=== PATIENT | female | born 1970 | race Caucasian/White ===

== ENCOUNTER 2019-12-06 20:34 | Observation (INO) | payer SELFPAY ==
[~2019-12-06] VITALS: Ht 175 cm; Wt 155.0 kg
--- NOTE | 2019-12-06 20:53 | NUR ---
Covid-19 swab obtained.
[2019-12-06 20:54] LABS: BASOPHILS % (AUTO) 0 % (0-10); EOSINOPHILS # (AUTO) 0.2 10^3/uL (0.0-0.3); EOSINOPHILS % (AUTO) 3 % (0-10); HEMATOCRIT 46 % (35-52); HEMOGLOBIN 15.9 G/DL (11.5-16.0); LYMPHOCYTES # (AUTO) 2.8 X 10^3 (1.0-4.0); LYMPHOCYTES % (AUTO) 41 % (12-44); MEAN CORPUSCULAR HEMOGLOBIN 29 PG (25-34); MEAN CORPUSCULAR HGB CONC 35 G/DL (32-36); MEAN CORPUSCULAR VOLUME 82 FL (80-99); MEAN PLATELET VOLUME 9.3 FL (7.4-10.4); MONOCYTES # (AUTO) 0.7 X 10^3 (0.0-1.0); MONOCYTES % (AUTO) 9 % (0-12); NEUTROPHILS # (AUTO) 3.2 X 10^3 (1.8-7.8); NEUTROPHILS % (AUTO) 46 % (42-75); PLATELET COUNT 173 10^3/uL (130-400); RED CELL DISTRIBUTION WIDTH 12.9 % (10.0-14.5); WHITE BLOOD COUNT 6.9 10^3/uL (4.3-11.0)
[2019-12-06] MEDS ORDERED: NITROGLYCERIN 0.4 MG SL TABS BTL 25'S SL PRN ×2 (21:00→23:00)
[2019-12-06] MEDS ORDERED: ASPIRIN 81 MG CHEW (CHILDREN'S ASA) PO ONE (21:00)
--- NOTE | 2019-12-06 21:03 | ED Chest Pain ---
General Chief Complaint: Chest Pain Stated Complaint: CP,SOB Source: patient History of Present Illness Date Seen by Provider: Dec 06, 2019 Time Seen by Provider: 20:38 Initial Comments PT ARRIVES VIA POV FROM HOME C/O CHEST PAIN FOR 4 DAYS, STATES IT WAS "JUST A LITTLE BIT" INITIALLY AND INITIALLY WOULD COME AND GO ,BUT HAS BEEN WORSE AND CONSTANT THE LAST 2 DAYS PAIN IS IN LEFT UPPER CHEST AND RADIATES TO LEFT SHOULDER PAIN IS WORSE WITH ACTIVITY/EXERTION AND IS ALSO WORSE WHEN SHE IS FEELING "STRESSED"--STATES SHE HAS BEEN UNDER ALOT OF STRESS LATELY C/O SHORTNESS OF BREATH C/O NAUSEA, NO VOMITING 4 DAYS AGO "HAD REALLY BAD ABDOMINAL PAIN" ALL OVER ABDOMEN LAST WEEK SHE HAD DIARRHEA FOR A DAY OR TWO HAS CONTINUED TO EAT AND DRINK USUAL NO URINARY SYMPTOMS NO FEVER/SWEATS/CHILLS NO DIZZINESS NO PALPITATIONS NO COUGH NO SORE THROAT NO LOSS OF TASTE OR SMELL NO SWELLING IN LEGS/FEET OR PAIN IN CALVES NO KNOWN SICK CONTACTS OR KNOWN EXPOSURE TO COVID-19 HAS NOT TAKEN ANYTHING FOR SYMPTOMS SYMPTOMS NO DIFFERENT TONIGHT HAS NOT SOUGHT CARE UNTIL TONIGHT NO HISTORY OF SIMILAR PCP: NONE Allergies and Home Medications Allergies Coded Allergies: No Known Drug Allergies (Unverified , 12/06/19) Patient Home Medication List Home Medication List Reviewed: Yes Review of Systems Review of Systems Constitutional: no symptoms reported; No chills, No diaphoresis, No dizziness, No fever, No malaise, No weakness EENTM: No Symptoms Reported Respiratory: See HPI; Denies Cough; Shortness of Air Cardiovascular: See HPI, Chest Pain; Denies Edema, Denies Lightheadedness, Denies Palpitations, Denies Syncope Gastrointestinal: See HPI, Abdominal Pain, Diarrhea, Nausea; Denies Poor Appetite, Denies Poor Fluid Intake, Denies Vomiting Genitourinary: No Symptoms Reported Musculoskeletal: no symptoms reported; No back pain Skin: no symptoms reported Psychiatric/Neurological: No Symptoms Reported; Denies Headache Endocrine: No Symptoms Reported Hematologic/Lymphatic: No Symptoms Reported Past Chqlxck-Valpye-Jqybpz Hx Past Med/Social Hx: Reviewed and Corrections made Patient Social History Alcohol Use: Denies Use Recreational Drug Use: No Smoking Status: Never a Smoker Recent Foreign Travel: No Contact w/Someone Who Travel: No Past Medical History Surgeries: Yes (HYST/BSO 1996; SPARKLE 2007; EGD/COLONOSCOPY/POLYPECTOMY) Gallbladder, Hysterectomy, Oophorectomy Respiratory: No Cardiac: No Neurological: No Reproductive Disorders: Yes (HYST/BSO) 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 oz. kg; BMI Method: General Appearance: No Apparent Distress, Obese, Other (VERY PLEASANT) HEENT: PERRL/EOMI Neck: Full Range of Motion, Normal Inspection, Non Tender, Supple; No Carotid Bruit, No JVD Respiratory: Chest Non Tender, Normal Breath Sounds, No Accessory Muscle Use, No Respiratory Distress Cardiovascular: Regular Rate, Rhythm, No Edema, No JVD, No Murmur, Normal Peripheral Pulses Gastrointestinal: Normal Bowel Sounds, No Organomegaly, No Pulsatile Mass, Non Tender, Soft Extremity: Normal Capillary Refill, Normal Inspection, Normal Range of Motion, Non Tender, No Calf Tenderness, No Pedal Edema Neurologic/Psychiatric: Alert, Oriented x3, No Motor/Sensory Deficits, Normal 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, 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 Skin: Normal Color, Warm/Dry Progress/Results/Core Measures Results/Orders Lab Results Laboratory Tests Test 12/06/19 20:47 12/06/19 20:53 Range/Units White Blood Count 6.9 4.3-11.0 10^3/uL Red Blood Count 5.55 4.35-5.85 10^6/uL Hemoglobin 15.9 11.5-16.0 G/DL Hematocrit 46 35-52 % Mean Corpuscular Volume 82 80-99 FL Mean Corpuscular Hemoglobin 29 25-34 PG Mean Corpuscular Hemoglobin Concent 35 32-36 G/DL Red Cell Distribution Width 12.9 10.0-14.5 % Platelet Count 173 130-400 10^3/uL Mean Platelet Volume 9.3 7.4-10.4 FL Neutrophils (%) (Auto) 46 42-75 % Lymphocytes (%) (Auto) 41 12-44 % Monocytes (%) (Auto) 9 0-12 % Eosinophils (%) (Auto) 3 0-10 % Basophils (%) (Auto) 0 0-10 % Neutrophils # (Auto) 3.2 1.8-7.8 X 10^3 Lymphocytes # (Auto) 2.8 1.0-4.0 X 10^3 Monocytes # (Auto) 0.7 0.0-1.0 X 10^3 Eosinophils # (Auto) 0.2 0.0-0.3 10^3/uL Basophils # (Auto) 0.0 0.0-0.1 10^3/uL Erythrocyte Sedimentation Rate 5 0-30 MM/HR Prothrombin Time 12.6 12.2-14.7 SEC INR Comment 0.9 0.8-1.4 Activated Partial Thromboplast Time 30 24-35 SEC D-Dimer 0.32 0.00-0.49 UG/ML Sodium Level 141 135-145 MMOL/L Potassium Level 3.8 3.6-5.0 MMOL/L Chloride Level 107 98-107 MMOL/L Carbon Dioxide Level 25 21-32 MMOL/L Anion Gap 9 5-14 MMOL/L Blood Urea Nitrogen 13 7-18 MG/DL Creatinine 0.98 0.60-1.30 MG/DL Estimat Glomerular Filtration Rate 60 BUN/Creatinine Ratio 13 Glucose Level 110 H 70-105 MG/DL Calcium Level 9.3 8.5-10.1 MG/DL Corrected Calcium 9.1 8.5-10.1 MG/DL Magnesium Level 1.9 1.6-2.4 MG/DL Total Bilirubin 0.8 0.1-1.0 MG/DL Aspartate Amino Transf (AST/SGOT) 21 5-34 U/L Alanine Aminotransferase (ALT/SGPT) 18 0-55 U/L Alkaline Phosphatase 86 40-136 U/L Lactate Dehydrogenase 255 H 125-220 U/L Total Creatine Kinase 105 29-168 U/L Creatine Kinase MB 1.1 <6.6 NG/ML Myoglobin 41.7 10.0-92.0 NG/ML Troponin I < 0.028 <0.028 NG/ML C-Reactive Protein High Sensitivity 0.46 0.00-0.50 MG/DL B-Type Natriuretic Peptide < 10.0 <100.0 PG/ML Total Protein 7.2 6.4-8.2 GM/DL Albumin 4.2 3.2-4.5 GM/DL Amylase Level 49 25-125 U/L Lipase 22 8-78 U/L Procalcitonin 0.02 <0.10 NG/ML My Orders Orders - DERRICKTAYLAA Nora DO Cbc With Automated Diff (12/06/19 20:37) Magnesium (12/06/19 20:37) Chest 1 View, Ap/Pa Only (12/06/19 20:37) Ekg Tracing (12/06/19 20:37) Comprehensive Metabolic Panel (12/06/19 20:37) Myoglobin Serum (12/06/19 20:37) Protime With Inr (12/06/19 20:37) Partial Thromboplastin Time (12/06/19 20:37) O2 (12/06/19 20:37) Monitor-Rhythm Ecg Trace Only (12/06/19 20:37) Ed Iv/Invasive Line Start (12/06/19 20:37) Creatine Kinase (12/06/19 20:37) Creatine Kinase Mb (12/06/19 20:37) Lipase (12/06/19 20:37) Amylase (12/06/19 20:37) BNP (12/06/19 20:37) Erythrocyte Sedimentation Rate (12/06/19 20:37) Coronavirus Sars-Cov-2 So 2018 (12/06/19 20:37) Nitroglycerin 0.4 Mg Btl 25's (Nitrostat (12/06/19 21:00) Aspirin Chewable Tablet (Baby Aspirin Ch (12/06/19 21:00) Hs C Reactive Protein (12/06/19 20:47) LDH (12/06/19 20:47) Procalcitonin (Pct) (12/06/19 20:47) Troponin I (12/06/19 20:47) Fibrin Degradation Products (12/06/19 20:47) Enoxaparin Injection (Lovenox Injection) (12/06/19 22:00) Enoxaparin Injection (Lovenox Injection) (12/06/19 22:00) Metoprolol Succinate (Xl) Tab (Toprol Xl (12/06/19 22:00) Medications Given in ED Current Medications Medications Dose Ordered Sig/Darryl Route Start Time Stop Time Status Last Admin Dose Admin Aspirin 324 mg ONCE ONCE PO 12/06/19 21:00 12/06/19 21:04 DC 12/06/19 21:01 324 MG Enoxaparin Sodium 50 mg ONCE ONCE SC 12/06/19 22:00 12/06/19 22:01 DC 12/06/19 22:01 50 MG Enoxaparin Sodium 100 mg ONCE ONCE SC 12/06/19 22:00 12/06/19 22:01 DC 12/06/19 22:00 100 MG Nitroglycerin 0.4 mg UD PRN SL 12/06/19 21:00 12/06/19 21:01 0.4 MG Vital Signs/I&O 12/06/19 12/06/19 12/06/19 12/06/19 20:40 20:40 21:07 21:43 Temp 35.6 Pulse 80 90 66 Resp 18 20 16 B/P (MAP) 150/116 (127) 135/75 (95) 142/82 (102) Pulse Ox 98 96 99 O2 Delivery Room Air Room Air Room Air Room Air Progress Progress Note : Progress Note PT PLACED IN ISOLATION ROOM, PPE WORN AT ALL TIMES, PER CURRENT HOSPITAL GUIDELINES COVID TESTING PERFORMED PT GIVEN ASPIRIN AND NTG X 1 WITH COMPLETE RELIEF OF PAIN AND BP DOWN UNEVENTFUL ER STAY Initial ECG Impression Date: Dec 06, 2019 Initial ECG Impression Time: 20:42 Initial ECG Rate: 81 Initial ECG Rhythm: Normal Sinus Diagnostic Imaging Comments CXR--NO ACUTE PROCESS, PER RADIOLOGIST REPORT AT 0 Reviewed: Reviewed by Me Departure Communication (Admissions) 2149--SPOKE WITH DR. PARIS, HOSPITALIST, ACCEPTS PT FOR ADMIT Impression Primary Impression: Chest pain Additional Impressions: HTN (hypertension) COVID P.U.I. Morbid obesity Disposition: 09 ADMITTED INPATIENT Condition: Improved Admissions Decision to Admit Reason: Admit from ER (General) Decision to Admit/Date: Dec 06, 2019 Time/Decision to Admit Time: 21:50 Departure-Patient Inst. Referrals: NO,LOCAL PHYSICIAN (PCP/Family) Primary Care Physician JAY MEZA DO Dec 06, 2019 21:03
[2019-12-06 21:07] VITALS: BP 135/75
--- NOTE | 2019-12-06 21:07 | NUR ---
Chest pain is now down to a 0 out of 10 after 1st nitro given.
[2019-12-06 21:17] LABS: FIBRIN DEGRADATION PRODUCTS 0.32 UG/ML (0.00-0.49); INR 0.9 (0.8-1.4); PROTHROMBIN TIME PATIENT 12.6 SEC (12.2-14.7)
[2019-12-06 21:20] LABS: ALANINE AMINOTRANSFERASE 18 U/L (0-55); ALBUMIN 4.2 GM/DL (3.2-4.5); ALKALINE PHOSPHATASE 86 U/L (40-136); AMYLASE 49 U/L (25-125); BILIRUBIN,TOTAL 0.8 MG/DL (0.1-1.0); BUN/CREATININE RATIO 13; CALCIUM 9.3 MG/DL (8.5-10.1); CARBON DIOXIDE 25 MMOL/L (21-32); CHLORIDE 107 MMOL/L (98-107); CREATINE KINASE 105 U/L (29-168); CREATININE SERUM 0.98 MG/DL (0.60-1.30); GFR ESTIMATED 60; GLUCOSE 110 MG/DL (70-105); LIPASE 22 U/L (8-78); MAGNESIUM 1.9 MG/DL (1.6-2.4); POTASSIUM 3.8 MMOL/L (3.6-5.0); SODIUM 141 MMOL/L (135-145); TOTAL PROTEIN 7.2 GM/DL (6.4-8.2)
[2019-12-06 21:41] LABS: CREATINE KINASE MB 1.1 NG/ML (<6.6)
[2019-12-06 21:43] VITALS: BP 142/82
--- NOTE | 2019-12-06 21:49 | Diagnostic Imaging Report ---
INDICATION: Chest heaviness. COMPARISON: No prior examination is available for comparison. EXAMINATION: Single view of the chest was obtained. FINDINGS: The heart size, mediastinal configuration, and pulmonary vascularity are within normal limits. There is no pleural effusion, pneumothorax, or pneumonia. The osseous structures are unremarkable. IMPRESSION: No acute cardiopulmonary abnormality. Dictated by: Dictated on workstation # [id number]
[2019-12-06] MEDS ORDERED: ENOXAPARIN 100 MG/1 ML (LOVENOX) SYR SC ONE (22:00)
[2019-12-06] MEDS ORDERED: meTOproloL SUCCINATE 50 MG (TOPROL XL) TAB PO SCH (22:00)
[2019-12-06] MEDS ORDERED: ENOXAPARIN 60 MG/0.6 ML (LOVENOX) SYR SC ONE (22:00)
--- NOTE | 2019-12-06 22:00 | NUR ---
Patient given education on Lovenox and Metoprolol that is being given. Patient continues to deny any pain.
--- OUTSIDE RECORDS SUMMARY | 2019-12-06 22:10 | XMS REPORT | Continuity of Care Document ---
Demographics Preferred Language Unknown Marital Status Unknown Religion Affiliation Unknown Race Unknown Ethnic Group Unknown Author Organization Unknown Address Unknown Phone Unavailable Allergies There is no data. Medications There is no data. Problems There is no data. Procedures There is no data. Results Test Result Range Complete blood count (CBC) with automate d white blood cell (WBC) differential - 12/06/19 20:47 Blood leukocytes automated count (number/volume) 6.9 10*3/uL 4.3-11.0 Blood erythrocytes automated count (number/volume) 5.55 10*6/uL 4.35-5.85 Venous blood hemoglobin measurement (mass/volume) 15.9 g/dL 11.5-16.0 Blood hematocrit (volume fraction) 46 % 35-52 Automated erythrocyte mean corpuscular volume 82 [ foz_us] 80-99 Automated erythrocyte mean corpuscular h emoglobin (mass per erythrocyte) 29 pg 25-34 Automated erythrocyte mean corpuscular h emoglobin concentration measurement (mass/volume) 35 g/dL 32-36 Automated erythrocyte distribution width ratio 12. 9 % 10.0- 14.5 Automated blood platelet count (count/volume) 173 10*3/uL 130-400 Automated blood platelet mean volume measurement 9.3 [foz_us] 7.4-10.4 Automated blood neutrophils/100 leukocytes 46 % 42-75 Automated blood lymphocytes/100 leukocytes 41 % 12-44 Blood monocytes/100 leukocytes 9 % 0-12 Automated blood eosinophils/100 leukocytes 3 % 0-10 Automated blood basophils/100 leukocytes 0 % 0-10 Blood neutrophils automated count (number/volume) 3.2 10*3 1.8-7.8 Blood lymphocytes automated count (number/volume) 2.8 10*3 1.0-4.0 Blood monocytes automated count (number/volume) 0. 7 10*3 0.0-1.0 Automated eosinophil count 0.2 10*3/uL 0 .0-0.3 Automated blood basophil count (count/volume) 0.0 10*3/uL 0.0-0.1 PT panel in platelet poor plasma by coag ulation assay - 12/06/19 20:47 Prothrombin time (PT) in platelet poor plasma by coagu lation assay 12.6 s 12.2-14.7 INR in platelet poor plasma or blood by coagulation as say 0.9 0.8-1.4 Activated partial thromboplastin time (a PTT) in platelet poor plasma bycoagulation assay - 12/06/19 20:47 Activated partial thromboplastin time (a PTT) in platelet poor plasma bycoagulation assay 30 s 24-35 Fibrin D-dimer FEU measurement in platel et poor plasma (mass/volume) - 12/06/19 20:47 Fibrin D-dimer FEU measurement in platelet poor plasma (mass/volume) 0.32 ug/mL 0.00-0.49 Comprehensive metabolic panel - 12/06/19 20:47 Serum or plasma sodium measurement (moles/volume) 141 mmol/L 135-145 Serum or plasma potassium measurement (moles/volume) 3.8 mmol/L 3.6-5.0 Serum or plasma chloride measurement (moles/volume) 107 mmol/L 98-107 Carbon dioxide 25 mmol/L 21-32 Serum or plasma anion gap determination (moles/volume) 9 mmol/L 5-14 Serum or plasma urea nitrogen measurement (mass/volume ) 13 mg/dL 7-18 Serum or plasma creatinine measurement (mass/volume) 0.98 mg/dL 0.60-1.30 Serum or plasma urea nitrogen/creatinine mass ratio 13 NRG Serum or plasma creatinine measurement w ith calculation of estimated glomerular filtration rate 60 NRG Serum or plasma glucose measurement (mass/volume) 110 mg/dL 70-105 Serum or plasma calcium measurement (mass/volume) 9.3 mg/dL 8.5-10.1 Serum or plasma total bilirubin measurement (mass/volu me) 0.8 mg/dL 0.1-1.0 Serum or plasma alkaline phosphatase mane surement (enzymatic activity/volume) 86 U/L 40-136 Serum or plasma aspartate aminotransfera se measurement (enzymatic activity/volume) 21 U/L 5-34 Serum or plasma alanine aminotransferase measurement (enzymatic activity/volume) 18 U/L 0-55 Serum or plasma protein measurement (mass/volume) 7.2 g/dL 6.4-8.2 Serum or plasma albumin measurement (mass/volume) 4.2 g/dL 3.2-4.5 CALCIUM CORRECTED 9.1 mg/dL 8.5-10.1 Magnesium - 12/06/19 20:47 Magnesium 1.9 mg/dL 1.6-2.4 Serum ragweed IgE antibody assay - 12/05 20:47 Serum ragweed IgE antibody assay 255 U/L 125-220 PROCALCITONIN (PCT) - 12/06/19 20:47 PROCALCITONIN (PCT) 0.02 ng/mL <0.10 Serum or plasma creatine kinase measurem ent (enzymatic activity/volume) - 12/06/19 20:47 Serum or plasma creatine kinase measurem ent (enzymatic activity/volume) 105 U/L 29-168 Serum or plasma creatine kinase MB measu rement (enzymatic activity/volume) - 12/06/19 20:47 Serum or plasma creatine kinase MB measu rement (enzymatic activity/volume) 1.1 ng/mL <6.6 Serum or plasma troponin i.cardiac measu rement (mass/volume) - 12/06/19 20:47 Serum or plasma troponin i.cardiac measurement (mass/v olume) < ng/mL <0.028 Erythrocyte sedimentation rate by catarina gren method - 12/06/19 20:47 Erythrocyte sedimentation rate by westergren method 5 mm 0- 30 Serum or plasma lithium measurement (mol es/volume) - 12/06/19 20:47 BNP PT < 10.0 <100.0 Myoglobin, serum - 12/06/19 20:47 Myoglobin, serum 41.7 ng/mL 10.0-92.0 Serum or plasma amylase measurement (enz ymatic activity/volume) - 12/06/19 20:47 Serum or plasma amylase measurement (enzymatic activit y/volume) 49 U/L 25-125 Lipase - 12/06/19 20:47 Lipase 22 U/L 8-78 Serum or plasma C reactive protein measu rement (mass/volume) - 12/06/19 20:47 Serum or plasma C reactive protein measurement (mass/v olume) 0.46 mg/dL 0.00-0.50 Encounters ACCT No. Visit Date/Time Discharge Status Pt. Type Provider Facility Loc./Unit Complaint [id number] 12/06/2019 21:03:00 Document Registration
[2019-12-06 22:36] VITALS: BP 139/83
[2019-12-06] MEDS ORDERED: ONDANSETRON 4 MG/2 ML (SDV) Z0FRAN IV PRN (23:00)
[2019-12-06] MEDS ORDERED: CATHETER FLUSH 10 ML SYR IV PRN (23:00)
[2019-12-06] MEDS ORDERED: morphine INJ 4 MG/ML 1 ML (VIAL/SYRINGE) IV PRN (23:00)
[2019-12-06 23:01] LABS: BILIRUBIN,URINE NEGATIVE (NEGATIVE); CLARITY,URINE CLEAR; COLOR,URINE YELLOW; GLUCOSE, URINE (UA) NEGATIVE (NEGATIVE); KETONES,URINE NEGATIVE (NEGATIVE); LEUKOCYTE ESTERASE ,URINE 1+ (NEGATIVE); NITRITE,URINE NEGATIVE (NEGATIVE); PH,URINE 6.5 (5-9); PROTEIN,URINE NEGATIVE (NEGATIVE)
[2019-12-06 23:05] LABS: BASOPHILS % (AUTO) 0 % (0-10); EOSINOPHILS # (AUTO) 0.2 10^3/uL (0.0-0.3); EOSINOPHILS % (AUTO) 2 % (0-10); HEMATOCRIT 43 % (35-52); LYMPHOCYTES # (AUTO) 1.8 X 10^3 (1.0-4.0); LYMPHOCYTES % (AUTO) 25 % (12-44); MEAN CORPUSCULAR HEMOGLOBIN 29 PG (25-34); MEAN CORPUSCULAR HGB CONC 35 G/DL (32-36); MEAN CORPUSCULAR VOLUME 82 FL (80-99); MEAN PLATELET VOLUME 9.6 FL (7.4-10.4); MONOCYTES # (AUTO) 0.6 X 10^3 (0.0-1.0); MONOCYTES % (AUTO) 9 % (0-12); NEUTROPHILS # (AUTO) 4.6 X 10^3 (1.8-7.8); NEUTROPHILS % (AUTO) 64 % (42-75); PLATELET COUNT 156 10^3/uL (130-400); WHITE BLOOD COUNT 7.2 10^3/uL (4.3-11.0)
[2019-12-06 23:12] LABS: BACTERIA,URINE FEW /HPF
[2019-12-06 23:16] LABS: ALBUMIN 3.9 GM/DL (3.2-4.5); CHLORIDE 107 MMOL/L (98-107); SODIUM 141 MMOL/L (135-145)
[2019-12-06 23:17] LABS: CALCIUM 9.1 MG/DL (8.5-10.1)
[2019-12-06 23:18] LABS: TOTAL PROTEIN 6.7 GM/DL (6.4-8.2); TRIGLYCERIDES 77 MG/DL (<150); VLDL CHOLESTEROL 15 MG/DL (5-40)
[2019-12-06 23:19] LABS: GLUCOSE 122 MG/DL (70-105)
[2019-12-06 23:20] LABS: BILIRUBIN,TOTAL 0.9 MG/DL (0.1-1.0); CARBON DIOXIDE 24 MMOL/L (21-32)
[2019-12-06 23:22] LABS: ALKALINE PHOSPHATASE 82 U/L (40-136); CREATININE SERUM 0.93 MG/DL (0.60-1.30); GFR ESTIMATED > 60
[2019-12-06 23:23] LABS: BUN/CREATININE RATIO 14; CHOLESTEROL 159 MG/DL (< 200)
[2019-12-06 23:24] LABS: HDL CHOLESTEROL 50 MG/DL (40-60)
[2019-12-06 23:25] LABS: ALANINE AMINOTRANSFERASE 12 U/L (0-55)
[2019-12-06 23:46] LABS: EOSINOPHILS % (MANUAL) 3 %; LYMPHOCYTES % (MANUAL) 26 %; MONOCYTES % (MANUAL) 8 %; NEUTROPHILS % (MANUAL) 63 %; RBC MORPH NORMAL
[2019-12-07] VITALS (16 sets, daily range): BP systolic 91–125; BP diastolic 58–88
[2019-12-07 03:01] LABS: AMPHETAMINE SCREEN, URINE NEGATIVE (NEGATIVE); BARBITURATE SCREEN URINE NEGATIVE (NEGATIVE); BENZODIAZEPINES SCREEN URINE NEGATIVE (NEGATIVE); CANNABINOID SCREEN, URINE NEGATIVE (NEGATIVE); COCAINE SCREEN URINE NEGATIVE (NEGATIVE); METHADONE STAT NEGATIVE (NEGATIVE); METHAMPHETAMINE SCREEN URINE S NEGATIVE (NEGATIVE); OPIATE SCREEN URINE NEGATIVE (NEGATIVE); OXYCODONE STAT NEGATIVE (NEGATIVE); PROPOXYPHENE STAT NEGATIVE (NEGATIVE); TRICYCLIC ANTIDEPRESSANTS SCRE NEGATIVE (NEGATIVE)
[2019-12-07 04:34] LABS: BASOPHILS % (AUTO) 0 % (0-10); EOSINOPHILS # (AUTO) 0.1 10^3/uL (0.0-0.3); EOSINOPHILS % (AUTO) 2 % (0-10); HEMATOCRIT 42 % (35-52); HEMOGLOBIN 14.4 G/DL (11.5-16.0); LYMPHOCYTES # (AUTO) 2.3 X 10^3 (1.0-4.0); LYMPHOCYTES % (AUTO) 34 % (12-44); MEAN CORPUSCULAR HEMOGLOBIN 29 PG (25-34); MEAN CORPUSCULAR HGB CONC 35 G/DL (32-36); MEAN CORPUSCULAR VOLUME 83 FL (80-99); MEAN PLATELET VOLUME 9.4 FL (7.4-10.4); MONOCYTES # (AUTO) 0.6 X 10^3 (0.0-1.0); MONOCYTES % (AUTO) 8 % (0-12); NEUTROPHILS # (AUTO) 3.7 X 10^3 (1.8-7.8); NEUTROPHILS % (AUTO) 55 % (42-75); PLATELET COUNT 158 10^3/uL (130-400); WHITE BLOOD COUNT 6.7 10^3/uL (4.3-11.0)
[2019-12-07] MEDS: CATHETER FLUSH 10 ML SYR IV SCH ×2 (04:42→14:08)
[2019-12-07 04:54] LABS: CHLORIDE 109 MMOL/L (98-107); POTASSIUM 4.1 MMOL/L (3.6-5.0); SODIUM 141 MMOL/L (135-145)
[2019-12-07 04:55] LABS: ALBUMIN 3.8 GM/DL (3.2-4.5)
[2019-12-07 04:56] LABS: CALCIUM 8.8 MG/DL (8.5-10.1)
[2019-12-07 04:57] LABS: GLUCOSE 109 MG/DL (70-105); TOTAL PROTEIN 6.3 GM/DL (6.4-8.2); TRIGLYCERIDES 79 MG/DL (<150); VLDL CHOLESTEROL 16 MG/DL (5-40)
[2019-12-07 04:58] LABS: CARBON DIOXIDE 23 MMOL/L (21-32)
[2019-12-07 05:01] LABS: ALKALINE PHOSPHATASE 75 U/L (40-136); CREATININE SERUM 0.91 MG/DL (0.60-1.30); GFR ESTIMATED > 60
[2019-12-07 05:02] LABS: BUN/CREATININE RATIO 14; CHOLESTEROL 149 MG/DL (< 200)
[2019-12-07 05:03] LABS: HDL CHOLESTEROL 47 MG/DL (40-60)
[2019-12-07 05:04] LABS: ALANINE AMINOTRANSFERASE 12 U/L (0-55)
[2019-12-07] MEDS ORDERED: PANTOPRAZOLE 40 MG (PROTONIX) VIAL IV SCH (09:00)
[2019-12-07] MEDS ORDERED: ASPIRIN E.C. 81 MG (ECOTRIN) TAB PO SCH (09:00)
[2019-12-07] MEDS ORDERED: meTOproloL SUCCINATE 50 MG (TOPROL XL) TAB PO SCH (09:00)
--- NOTE | 2019-12-07 10:30 | Short Stay Summary-Hospitalist ---
History of Present Illness HPI/Chief Complaint Pt is a 49yoCF who presented to the ER due to chest pain. She states that last week she was sick with a "GI bug" and had a lot of diarrhea and nausea. She is also under a lot of stress due to her boyfriend owning his own business. She developed chest pain in the center of her chest and attributed it to stress but it continued over the past four days. She thought it was different yesterday and spread to her left shoulder. She thinks it's worse with exertion. She denies fever, cough, palpitations, or dizziness. Today she states she is feeling well. She also report a history of an "ulcer" on an EGD year ago. She was previously treated with a PPI but has since quit taking that. Source: patient Date Seen 12/07/19 Time Seen by a Provider: 09:00 Attending Physician Cici Maldonado MD PCP No,Local Physician Referring Physician Date of Admission Dec 06, 2019 at 21:50 Home Medications & Allergies Home Medications Reviewed patient Home Medication Reconciliation performed by pharmacy medication reconciliations pbx technician and/or nursing. Patients Allergies have been reviewed. Allergies Allergies Coded Allergies No Known Drug Allergies (Unverified12/06/19) Past Nrsvelq-Egcjya-Lpglho Hx Past Med/Social Hx: Reviewed and Corrections made Patient Social History Marrital Status: single Employed/Student: employed Alcohol Use: Denies Use Recreational Drug Use: No Smoking Status: Never a Smoker 2nd Hand Smoke Exposure: No Recent Foreign Travel: No Contact w/other who traveled: No Recent Hopitalizations: No Recent Infectious Disease Expo: No Immunizations Up To Date Pediatric: Yes Seasonal Allergies Seasonal Allergies: No Past Medical History Surgeries: Gallbladder, Hysterectomy, Oophorectomy Reproductive: Yes (HYST/BSO) Hysterectomy Gastrointestinal: Polyps, Ulcer Psychosocial: Anxiety History of Blood Disorders: No Family History Reviewed Nursing Family Hx No Pertinent Family Hx Review of Systems Constitutional: No chills, No fever EENTM: no symptoms reported Respiratory: see HPI; No cough; dyspnea on exertion Cardiovascular: see HPI, chest pain; No edema, No Hx of Intervention, No palpitations Gastrointestinal: abdominal pain, diarrhea, nausea; No vomiting Genitourinary: no symptoms reported Musculoskeletal: no symptoms reported Skin: no symptoms reported Psychiatric/Neurological: See HPI Physical Exam Physical Exam Vital Signs Vital Signs - First Documented 12/06/19 20:40 Temp 35.6 Pulse 80 Resp 18 B/P (MAP) 150/116 (127) Pulse Ox 98 O2 Delivery Room Air Capillary Refill : Less Than 3 Seconds Height, Weight, BMI Height: '" Weight: lbs. oz. kg; 51.06 BMI Method: General Appearance: No Apparent Distress, Obese HEENT: PERRL/EOMI Neck: Normal Inspection, Supple; No JVD Respiratory: Chest Non Tender, Lungs Clear, No Accessory Muscle Use, No Respiratory Distress Cardiovascular: Regular Rate, Rhythm, No Murmur, Normal Peripheral Pulses Gastrointestinal: Normal Bowel Sounds, Non Tender, Soft; No Guarding, No Re bound Extremity: Normal Capillary Refill, Normal Inspection, No Pedal Edema Neurologic/Psychiatric: Alert, Oriented x3, Normal Mood/Affect Skin: Normal Color, Warm/Dry Results Results/Procedures Labs Laboratory Tests 12/06/19 20:47 12/06/19 23:00 12/07/19 04:25 Patient resulted labs reviewed. Imaging: Reviewed Imaging Report Imaging [facility] [place] NAME: DARIN BLISS [facility] REC#: [id number] PT STATUS: REG ER : 1970 PHYSICIAN: JAY MEZA DO ADMIT DATE: 12/06/19/ER Signed Date of Exam:12/06/19 CHEST 1 VIEW, AP/PA ONLY INDICATION: Chest heaviness. COMPARISON: No prior examination is available for comparison. EXAMINATION: Single view of the chest was obtained. FINDINGS: The heart size, mediastinal configuration, and pulmonary vascularity are within normal limits. There is no pleural effusion, pneumothorax, or pneumonia. The osseous structures are unremarkable. IMPRESSION: No acute cardiopulmonary abnormality. Dictated by: Dictated on workstation # [id number] Dict: 12/06/194 Trans: 12/06/192154 [facility] [id number] Interpreted by: JERRY SHEPPARD MD Electronically signed by: JERRY SHEPPARD MD 12/06/192154 Short Stay Diagnosis Discharge Diagnosis-Short Stay Admission Diagnosis Chest Pain Final Discharge Diagnosis Chest Pain Conclusion Plan Chest pain Seems atypical in nature Cardiology consulted, appreciate recs - Recommend outpatient follow up Troponin Negative x3 Continue PPI Advised need for follow up EGD COVID negative Clinical Quality Measures AMI/AHF: ASA po Prior to arrival: No DVT/VTE Risk/Contraindication: Risk Factor Score Per Nursin RFS Level Per Nursing on Admit: 4+=Very High BRYCE FREIRE MD Dec 07, 2019 10:30
[2019-12-07] MEDS ORDERED: PANT20TA2 PO (10:36)
[2019-12-07] MEDS ORDERED: FAMO10TA43 PO (13:25)
--- NOTE | 2019-12-07 13:25 | NUR ---
SPOKE WITH THE PT (I CALLED HER ROOM PHONE) AND CALLED [facility] IN [place] TO COMPLETE THE MED REC PT SAYS SHE SHE TAKES CARAFATE PRN AND LAST FILLED IT AT [facility] IN [place]-WHEN I CALLED THEM THEY HAD NO RECORD OF THIS MEDICATION. I ALSO TRIED [facility] IN [place] AND THEY HAVE NEVER FILLED MEDICATIONS FOR THE PT. DUE TO NOT FINDING A PHARMACY THAT HAS FILLED THIS I AM NOT GOING TO INCLUDE THIS ON THE MED REC OTC MEDS: MIKAEL I DID UPDATE THE PATIENTS PREFERRED PHARMACY
--- NOTE | 2019-12-07 14:42 | Consultation-Cardiology ---
HPI-Cardiology Cardiology Consultation: Date of Consultation 12/07/19 Date of Admission Attending Physician Cici Maldonado MD Admitting Physician No,Local Physician Consulting Physician Duncan RAMIREZ MD HPI: Time Seen by a Provider: 13:30 Chief Complaint: Chest pain This is a 49-year-old lady with morbid obesity, however denies any other medical or cardiac complaints. She is a nonsmoker. No pertinent family history. She presents with off-and-on chest pain for 4 days. Comes and goes. Left upper chest, radiates to the shoulder. Worse with activity and stress. No relieving factors. Associated shortness of breath and occasional nausea and vomiting. Also complaining of abdominal discomfort and diarrhea. Review of Systems-Cardiology Review of Systems Constitutional: As described under HPI; No As described under HPI, No no symptoms reported, No chills, No fever, No lightheadedness Eyes: No As described under HPI, No no symptoms reported, No blindness, No blurred vision, No contact lenses, No drainage, No decreased acuity, No foreign body sensation, No pain, No vision change Ears/Nose/Throat: No As described under HPI, No no symptoms reported, No chronic hearing loss, No ear discharge, No ear pain, No nasal drainage, No ulcerations Respiratory: No no symptoms reported; As described under HPI; No As described under HPI, No cough, No orthopnea; shortness of breath; No SOB with excertion Cardiovascular: No no symptoms reported; As described under HPI; No As described under HPI; chest pain; No edema, No irregular heart rate, No lightheadedness, No palpitations Gastrointestinal: No no symptoms reported, No As described under HPI, No abdomen distended; abdominal pain; No blood streaked bowels, No constipation, No diarrhea, No nausea, No vomiting; nausea/vomiting/diarrhea; No stool coloration changes Genitourinary: No As described under HPI, No burning, No dysuria, No discharge, No frequency, No flank pain, No hematuria, No urgency : Yes : No Skin: No rash, No skin related problems, No ulcerations Psychiatric/Neurological: No anxiety, No depression, No seizure, No focal weakness, No syncope Hematologic: No bleeding abnormalities LID-Izxjgt-Mkfcgu Hx Patient Social History Marrital Status: single Employed/Student: employed Alcohol Use: Denies Use Recreational Drug Use: No Smoking Status: Never a Smoker 2nd Hand Smoke Exposure: No Recent Foreign Travel: No Recent Infectious Disease Expo: No Hospitalization with Isolation: Denies Past Medical History PMH As described under Assessment. Allergies and Home Medications Allergies Coded Allergies: No Known Drug Allergies (Unverified , 12/06/19) Home Medications Famotidine 10 Mg Tablet, 10 MG PO DAILY, (Reported) Patient Home Medication List Home Medication List Reviewed: Yes Physical Exam-Cardiology Physical Exam Vital Signs/I&O 12/07/19 12/07/19 12/07/19 12/07/19 03:00 03:40 03:40 04:00 Temp 36.3 Pulse 53 54 Resp 18 12 B/P (MAP) 93/71 (78) 99/76 (84) Pulse Ox 89 95 98 O2 Delivery Room Air Room Air Room Air 12/07/19 12/07/19 12/07/19 12/07/19 05:00 06:00 07:00 07:00 Pulse 49 49 50 49 Resp 9 25 17 B/P (MAP) 96/59 (71) 97/65 (76) 91/58 (69) Pulse Ox 96 94 91 O2 Delivery Room Air Room Air Room Air 12/07/19 12/07/19 12/07/19 12/07/19 08:00 08:00 08:50 09:00 Temp 36.4 Pulse 61 49 Resp 18 20 B/P (MAP) 91/66 (74) 108/78 (88) Pulse Ox 91 97 95 O2 Delivery Room Air Room Air Room Air 12/07/19 12/07/19 12/07/19 12/07/19 09:53 10:00 11:00 12:00 Pulse 56 48 57 Resp 12 31 12 B/P (MAP) 102/88 (93) 101/58 (72) 112/77 (89) Pulse Ox 95 96 96 O2 Delivery Room Air Room Air Room Air Room Air 12/07/19 12/07/19 12/07/19 12/07/19 12:00 12:21 12:58 13:00 Temp 36.0 Pulse 54 45 Resp 22 B/P (MAP) 106/64 (78) Pulse Ox 97 94 O2 Delivery Room Air Room Air Capillary Refill : Less Than 3 Seconds Constitutional: appears stated age, AAO x 3; No apparent distress; well- developed, well-nourished HEENT: PERRL; No discharge; hearing is well preserved, oral hygience is good; No ulceration, No xanthelasmas are seen Neck: No carotid bruit; carotid pulses are 2 + bilaterally Respiratory: chest is bilaterally symmetric, lungs clear to auscultation Cardiovascular: regular rate-rhythm, S1 and S2; No diastolic murmur, No systolic murmur Gastrointestinal: soft, audible bowel sounds; No spleenomegaly Rectal: deferred Extremities: normal range of motion, non-tender, normal inspection; No clubbing, No cyanosis; no lower extremity edema bilateral; No significant edema Neurologic/Psychiatric: no motor/sensory deficits, alert, normal mood/affect, oriented x 3, power is 5/5 both on sides Skin: normal color, warm/dry; No rash, No ulcerations Data Review Labs Laboratory Tests 12/06/19 20:47: White Blood Count 6.9, Red Blood Count 5.55, Hemoglobin 15.9, Hematocrit 46, Mean Corpuscular Volume 82, Mean Corpuscular Hemoglobin 29, Mean Corpuscular Hemoglobin Concent 35, Red Cell Distribution Width 12.9, Platelet Count 173, Mean Platelet Volume 9.3, Neutrophils (%) (Auto) 46, Lymphocytes (%) (Auto) 41, Monocytes (%) (Auto) 9, Eosinophils (%) (Auto) 3, Basophils (%) (Auto) 0, Neutrophils # (Auto) 3.2, Lymphocytes # (Auto) 2.8, Monocytes # (Auto) 0.7, Eosinophils # (Auto) 0.2, Basophils # (Auto) 0.0, Erythrocyte Sedimentation Rate 5, Prothrombin Time 12.6, INR Comment 0.9, Activated Partial Thromboplast Time 30, D-Dimer 0.32, Sodium Level 141, Potassium Level 3.8, Chloride Level 107, Carbon Dioxide Level 25, Anion Gap 9, Blood Urea Nitrogen 13, Creatinine 0.98, Estimat Glomerular Filtration Rate 60, BUN/Creatinine Ratio 13, Glucose Level 110H, Calcium Level 9.3, Corrected Calcium 9.1, Magnesium Level 1.9, Total Bilirubin 0.8, Aspartate Amino Transf (AST/SGOT) 21, Alanine Aminotransferase (ALT/SGPT) 18, Alkaline Phosphatase 86, Lactate Dehydrogenase 255H, Total Creatine Kinase 105, Creatine Kinase MB 1.1, Myoglobin 41.7, Troponin I < 0.028, C-Reactive Protein High Sensitivity 0.46, B-Type Natriuretic Peptide < 10.0, Total Protein 7.2, Albumin 4.2, Amylase Level 49, Lipase 22, Procalcitonin 0.02 12/06/19 20:53: Coronavirus (COVID-19)(PCR) Negative 12/06/19 22:34: Urine Color YELLOW, Urine Clarity CLEAR, Urine pH 6.5, Urine Specific [place] 1.010L, Urine Protein NEGATIVE, Urine Glucose (UA) NEGATIVE, Urine Ketones NEGATIVE, Urine Nitrite NEGATIVE, Urine Bilirubin NEGATIVE, Urine Urobilinogen 0.2, Urine Leukocyte Esterase 1+H, Urine RBC (Auto) NEGATIVE, Urine RBC NONE, Urine WBC 5-10H, Urine Crystals NONE, Urine Bacteria FEWH, Urine Casts NONE, Urine Mucus NEGATIVE, Urine Culture Indicated YES, Urine Opiates Screen NEGATIVE, Urine Oxycodone Screen NEGATIVE, Urine Methadone Screen NEGATIVE, Urine Propoxyphene Screen NEGATIVE, Urine Barbiturates Screen NEGATIVE, Ur Tricyclic Antidepressants Screen NEGATIVE, Urine Phencyclidine Screen NEGATIVE, Urine Amphetamines Screen NEGATIVE, Urine Methamphetamines Screen NEGATIVE, Urine Benzodiazepines Screen NEGATIVE, Urine Cocaine Screen NEGATIVE, Urine Cannabinoids Screen NEGATIVE 12/06/19 23:00: White Blood Count 7.2, Red Blood Count 5.27, Hemoglobin 15.0, Hematocrit 43, Mean Corpuscular Volume 82, Mean Corpuscular Hemoglobin 29, Mean Corpuscular Hemoglobin Concent 35, Red Cell Distribution Width 13.0, Platelet Count 156, Mean Platelet Volume 9.6, Neutrophils (%) (Auto) 64, Lymphocytes (%) (Auto) 25, Monocytes (%) (Auto) 9, Eosinophils (%) (Auto) 2, Basophils (%) (Auto) 0, Neutrophils # (Auto) 4.6, Lymphocytes # (Auto) 1.8, Monocytes # (Auto) 0.6, Eosinophils # (Auto) 0.2, Basophils # (Auto) 0.0, Sodium Level 141, Potassium Level 4.0, Chloride Level 107, Carbon Dioxide Level 24, Anion Gap 10, Blood Urea Nitrogen 13, Creatinine 0.93, Estimat Glomerular Filtration Rate > 60, BUN/Creatinine Ratio 14, Glucose Level 122H, Calcium Level 9.1, Corrected Calcium 9.2, Total Bilirubin 0.9, Aspartate Amino Transf (AST/SGOT) 18, Alanine Aminotransferase (ALT/SGPT) 12, Alkaline Phosphatase 82, Troponin I < 0.028, Total Protein 6.7, Albumin 3.9, Neutrophils % (Manual) 63, Lymphocytes % (Manual) 26, Monocytes % (Manual) 8, Eosinophils % (Manual) 3, Blood Morphology Comment NORMAL, Triglycerides Level 77, Cholesterol Level 159, LDL Cholesterol Direct 102, VLDL Cholesterol 15, HDL Cholesterol 50 12/07/19 04:25: White Blood Count 6.7, Red Blood Count 5.00, Hemoglobin 14.4, Hematocrit 42, Mean Corpuscular Volume 83, Mean Corpuscular Hemoglobin 29, Mean Corpuscular Hemoglobin Concent 35, Red Cell Distribution Width 13.0, Platelet Count 158, Mean Platelet Volume 9.4, Neutrophils (%) (Auto) 55, Lymphocytes (%) (Auto) 34, Monocytes (%) (Auto) 8, Eosinophils (%) (Auto) 2, Basophils (%) (Auto) 0, Neutrophils # (Auto) 3.7, Lymphocytes # (Auto) 2.3, Monocytes # (Auto) 0.6, Eosinophils # (Auto) 0.1, Basophils # (Auto) 0.0, Sodium Level 141, Potassium Level 4.1, Chloride Level 109H, Carbon Dioxide Level 23, Anion Gap 9, Blood Urea Nitrogen 13, Creatinine 0.91, Estimat Glomerular Filtration Rate > 60, BUN/Creatinine Ratio 14, Glucose Level 109H, Calcium Level 8.8, Corrected Calcium 9.0, Total Bilirubin 1.0, Aspartate Amino Transf (AST/SGOT) 17, Alanine Aminotransferase (ALT/SGPT) 12, Alkaline Phosphatase 75, Troponin I < 0.028, Total Protein 6.3L, Albumin 3.8, Triglycerides Level 79, Cholesterol Level 149, LDL Cholesterol Direct 99, VLDL Cholesterol 16, HDL Cholesterol 47 Microbiology 12/06/19 Urine Culture - Preliminary, Resulted Probable E.coli ECG Impression ECG Initial ECG Rhythm: Normal Sinus Initial ECG Impression: Normal A/P-Cardiology Assessment/Admission Diagnosis Chest pain, Shortness of breath, Abdominal pain, Diarrhea, Morbid obesity, COVID PUI Plan Chest pain, serial troponin negative. EKG did not reveal any acute ST-T wave abnormalities. Echocardiogram. Will likely require an outpatient nuclear stress test. Shortness of breath, negative BNP. Echocardiogram likely as an outpatient. No florid congestive heart failure on examination. Abdominal pain, defer to the primary team. Diarrhea, Morbid obesity, COVID PUI; pending results. Thank you for your consultation. Please call me if you have any questions. Chicho Ramirez MD, FACP, FACC, FSCAI, FHRS, CCDS Interventional Cardiology Cardiac Electrophysiology Vascular Medicine and Endovascular Interventions Clinical Quality Measures AMI/AHF: ASA po Prior to arrival: No DVT/VTE Risk/Contraindication: Risk Factor Score Per Nursin RFS Level Per Nursing on Admit: 4+=Very High Duncan RAMIREZ MD Dec 07, 2019 14:42
--- NOTE | 2019-12-07 14:44 | Discharge Inst-Simple/Standard ---
Discharge Inst-Standard Discharge Medications New, Converted or Re-Newed RX: Transmitted to Pharmacy Patient Instructions/Follow Up Plan of Care/Instructions/FU: Please continue to take your medications as written. Please follow up with your primary care doctor in the next week to follow up this hospital stay. Please follow up with Dr Ramirez for your stress test and echo as he recommended. Activity as Tolerated: Yes Discharge Diet: Cardiac Diet Return to The Hospital For: Chest pain, shortness of breath, heart racing, fever, if you feel you are getting worse. BRCYE FREIRE MD Dec 07, 2019 14:44
== END 2019-12-07 14:44 | disposition home or self-care (01) ==
LOC: ER 20:36 → ICU 21:50 → UNDOADMOB 21:50 → ICU 22:30 → UNDODISOB 12-07 15:50
PROVIDERS: ADMIT Internal Medicine; ATTEND Internal Medicine
DX: R07.9 Chest pain, unspecified (principal); F41.9 Anxiety disorder, unspecified; I10 Essential (primary) hypertension; R19.7 Diarrhea, unspecified; E66.01 Morbid (severe) obesity due to excess calories; Z68.43 Body mass index [BMI] 50.0-59.9, adult; Z90.710 Acquired absence of both cervix and uterus; Z90.722 Acquired absence of ovaries, bilateral; Z20.828 Contact with and (suspected) exposure to other viral communicable diseases
CPT/HCPCS: 71045; 80053 ×2; 80061 ×2; 80306; 81000; 82150; 82550; 82553; 83615; 83690; 83735; 83874; 83880; 84145; 84484 ×2; 85007; 85025 ×2; 85027; 85379; 85610; 85652; 85730; 86141; 87077; 87088; 87186; 93005; 93041; 96372; 99284; G0378; U0002; 36415; 87635

== ENCOUNTER 2022-11-11 18:35 | Emergency (ER) | payer OTHER ==
[~2022-11-11] VITALS: Ht 175 cm; Wt 158.0 kg
[~2022-11-11 18:35] MED LIST: FAMO10TA43 PO; PANT20TA2 PO
[2022-11-11 18:51] LABS: BASOPHILS % (AUTO) 0 % (0-10); EOSINOPHILS # (AUTO) 0.2 10^3/uL (0.0-0.3); EOSINOPHILS % (AUTO) 2 % (0-10); HEMATOCRIT 46 % (35-52); HEMOGLOBIN 15.5 g/dL (11.5-16.0); LYMPHOCYTES # (AUTO) 2.8 10^3/uL (1.0-4.0); LYMPHOCYTES % (AUTO) 36 % (12-44); MEAN CORPUSCULAR HEMOGLOBIN 29 pg (25-34); MEAN CORPUSCULAR HGB CONC 34 g/dL (32-36); MEAN CORPUSCULAR VOLUME 85 fL (80-99); MEAN PLATELET VOLUME 9.2 fL (9.0-12.2); MONOCYTES # (AUTO) 0.4 10^3/uL (0.0-1.0); MONOCYTES % (AUTO) 5 % (0-12); NEUTROPHILS # (AUTO) 4.4 10^3/uL (1.8-7.8); NEUTROPHILS % (AUTO) 56 % (42-75); PLATELET COUNT 150 10^3/uL (130-400); WHITE BLOOD COUNT 7.7 10^3/uL (4.3-11.0)
--- NOTE | 2022-11-11 19:03 | ED Chest Pain ---
General Chief Complaint: Chest Pain Stated Complaint: BP ISSUES/CHEST TIGHTNESS Nursing Triage Note: PT STATES CP AND TIGHTNESS FOR ABOUT 3-4 DAYS, 3 WKS HAS HAD EAR INFECTION AND UPPER RESP ISSUES, TOOK ABX FOR EARS, HIGH BP, HAD BP ISSUES A COUOPLE YRS AGO. Source: patient Exam Limitations: no limitations History of Present Illness Date Seen by Provider: Nov 11, 2022 Time Seen by Provider: 18:41 Allergies and Home Medications Allergies Coded Allergies: doxycycline (Verified Allergy, Intermediate, 11/11/22) Patient Home Medication List Ondansetron (Ondansetron Odt) 4 Mg Tab.rapdis, 4 MG SL Q4H PRN for NAUSEA/VOMITING Prescribed by: MARY ANN COTTER on 11/11/222135 Pantoprazole Sodium (Protonix) 20 Mg Tablet.dr, 20 MG PO DAILY Prescribed by: BRYCE FREIRE on 12/07/19 1441 Past Fgznvhy-Ucwroc-Aojuul Hx Patient Social History Tobacco Use?: No Substance use?: No Alcohol Use?: No Immunizations Up To Date PED Vaccines UTD: Yes Seasonal Allergies Seasonal Allergies: No Past Medical History Surgery/Hospitalization HX: [facility], C SECTION, LAP ABD, STOMACH ISSUES, GERD Surgeries: Yes (HYST/BSO 1996; SPARKLE 2007; EGD/COLONOSCOPY/POLYPECTOMY) Gallbladder, Hysterectomy, Oophorectomy Respiratory: No Cardiac: No Neurological: No Reproductive Disorders: Yes (HYST/BSO) [employer] History: Hysterectomy Genitourinary: No Gastrointestinal: Yes Polyps, Ulcer Musculoskeletal: No Endocrine: Yes (MORBIDLY OBESE) HEENT: No Cancer: No Psychosocial: No Anxiety Integumentary: No Blood Disorders: No Family Medical History No Pertinent Family Hx Physical Exam Vital Signs Vital Signs - First Documented 11/11/22 18:40 Temp 36.9 Pulse 104 Resp 20 B/P (MAP) 158/105 (122) Pulse Ox 96 O2 Delivery Room Air Capillary Refill : Less Than 3 Seconds Height, Weight, BMI Height: '" Weight: lbs. oz. kg; 51.00 BMI Method: Progress/Results/Core Measures Results/Orders Lab Results Laboratory Tests Test 11/11/22 18:45 11/11/22 20:45 Range/Units White Blood Count 7.7 4.3-11.0 10^3/uL Red Blood Count 5.38 H 3.80-5.11 10^6/uL Hemoglobin 15.5 11.5-16.0 g/dL Hematocrit 46 35-52 % Mean Corpuscular Volume 85 80-99 fL Mean Corpuscular Hemoglobin 29 25-34 pg Mean Corpuscular Hemoglobin Concent 34 32-36 g/dL Red Cell Distribution Width 12.2 10.0-14.5 % Platelet Count 150 130-400 10^3/uL Mean Platelet Volume 9.2 9.0-12.2 fL Immature Granulocyte % (Auto) 1 % Neutrophils (%) (Auto) 56 42-75 % Lymphocytes (%) (Auto) 36 12-44 % Monocytes (%) (Auto) 5 0-12 % Eosinophils (%) (Auto) 2 0-10 % Basophils (%) (Auto) 0 0-10 % Neutrophils # (Auto) 4.4 1.8-7.8 10^3/uL Lymphocytes # (Auto) 2.8 1.0-4.0 10^3/uL Monocytes # (Auto) 0.4 0.0-1.0 10^3/uL Eosinophils # (Auto) 0.2 0.0-0.3 10^3/uL Basophils # (Auto) 0.0 0.0-0.1 10^3/uL Immature Granulocyte # (Auto) 0.0 0.0-0.1 10^3/uL Prothrombin Time 13.2 12.2-14.7 SEC INR Comment 1.0 0.8-1.4 Activated Partial Thromboplast Time 31 24-35 SEC D-Dimer < 0.27 0.00-0.49 UG/ML Sodium Level 139 135-145 MMOL/L Potassium Level 3.6 3.6-5.0 MMOL/L Chloride Level 106 98-107 MMOL/L Carbon Dioxide Level 24 21-32 MMOL/L Anion Gap 9 5-14 MMOL/L Blood Urea Nitrogen 11 7-18 MG/DL Creatinine 0.85 0.60-1.30 MG/DL Estimat Glomerular Filtration Rate 81 BUN/Creatinine Ratio 13 Glucose Level 160 H 70-105 MG/DL Calcium Level 9.3 8.5-10.1 MG/DL Corrected Calcium 9.2 8.5-10.1 MG/DL Magnesium Level 1.9 1.6-2.4 MG/DL Total Bilirubin 1.0 0.1-1.0 MG/DL Aspartate Amino Transf (AST/SGOT) 18 5-34 U/L Alanine Aminotransferase (ALT/SGPT) 16 0-55 U/L Alkaline Phosphatase 92 40-136 U/L Myoglobin 51.9 10.0-92.0 NG/ML Troponin I < 0.028 < 0.028 <0.028 NG/ML C-Reactive Protein High Sensitivity 0.52 H 0.00-0.50 MG/DL B-Type Natriuretic Peptide < 10.0 <100.0 PG/ML Total Protein 6.9 6.4-8.2 GM/DL Albumin 4.1 3.2-4.5 GM/DL My Orders Orders - MARY ANN BELTRAN MD Ekg Tracing (11/11/22 18:40) Cbc With Automated Diff (11/11/22 18:41) Magnesium (11/11/22 18:41) Chest 1 View, Ap/Pa Only (11/11/22 18:41) Comprehensive Metabolic Panel (11/11/22 18:41) Myoglobin Serum (11/11/22 18:41) Protime With Inr (11/11/22 18:41) Partial Thromboplastin Time (11/11/22 18:41) O2 (11/11/22 18:41) Monitor-Rhythm Ecg Trace Only (11/11/22 18:41) Lipid Panel (11/12/22 06:00) Ed Iv/Invasive Line Start (11/11/22 18:41) Troponin I [place] (11/11/22 18:41) Bnp Fer (11/11/22 19:03) Hs C Reactive Protein (11/11/22 19:03) Fibrin Degradation Products (11/11/22 19:03) Ondansetron Injection (Zofran Injectio (11/11/22 19:30) Lidocaine 2% Viscous 15 Ml (Xylocaine Vi (11/11/22 19:30) Antacid Suspension (Mylanta Suspension (11/11/22 19:30) Troponin I [place] (11/11/22 20:45) Lactated Ringers (Lr 1000 Ml Iv Solution (11/11/22 20:30) Medications Given in ED Current Medications Medications Dose Ordered Sig/Darryl Route Start Time Stop Time Status Last Admin Dose Admin Al Hydrox/Mg Hydrox/Simethicone 30 ml ONCE ONCE PO 11/11/22 19:30 11/11/22 19:32 DC 11/11/22 19:33 30 ML Lactated Ringer's 1,000 ml @ 0 mls/hr Q0M ONCE IV 11/11/22 20:30 11/11/22 20:31 DC 11/11/22 20:27 1,000 MLS/HR Lidocaine HCl 15 ml ONCE ONCE PO 11/11/22 19:30 11/11/22 19:32 DC 11/11/22 19:33 15 ML Ondansetron HCl 4 mg ONCE ONCE IVP 11/11/22 19:30 11/11/22 19:32 DC 11/11/22 19:32 4 MG Vital Signs/I&O 11/11/22 18:40 Temp 36.9 Pulse 104 Resp 20 B/P (MAP) 158/105 (122) Pulse Ox 96 O2 Delivery Room Air Blood Pressure Mean: 122 Initial ECG Impression Date: Nov 11, 2022 Initial ECG Impression Time: 18:44 Initial ECG Rate: 105 Initial ECG Rhythm: S.Tach Comment Sinus tachycardia with no ST elevation. There is minimal ST depression in V2 and V3 which was noted on the automated read but does not meet diagnostic criteria. No abnormal intervals or axis deviation. Diagnostic Imaging Diagonstic Imaging: Xray Plain Films/CT/US/NM/MRI: chest Comments NAME: DARIN BLISS [facility] REC#: [id number] PT STATUS: REG ER : 1970 PHYSICIAN: MARY ANN BELTRAN MD ADMIT DATE: 11/11/22/ER Signed Date of Exam:11/11/22 CHEST 1 VIEW, AP/PA ONLY INDICATION: Chest pain and tightness for approximately 3-4 days. Ear infection. TECHNIQUE: Single view chest 6:52 PM. CORRELATION STUDY: 12/06/2019 FINDINGS: The heart size, mediastinal configuration and pulmonary vascularity are within normal limits. The lungs are clear with no consolidating infiltrate. There is no significant effusion or pneumothorax. IMPRESSION: 1. Stable, negative appearing portable chest. Dictated by: Dictated on workstation # [id number] Dict: 11/11/221907 Trans: 11/11/221938 DO [id number] Interpreted by: DOMI GUADALUPE DO Electronically signed by: DOMI GUADALUPE DO 11/11/221938 Departure Impression Primary Impression: Atypical chest pain Additional Impressions: Tachycardia Labile hypertension GERD (gastroesophageal reflux disease) Qualified Codes: K21.9 - Gastro-esophageal reflux disease without esophagitis Disposition: HOME, SELF-CARE Condition: Improved Departure-Patient Inst. Decision time for Depature: 21:24 Referrals: NO,LOCAL PHYSICIAN (PCP/Family) Primary Care Physician Patient Instructions: Acid Reflux and GERD in Adults (DC), Chest Pain That Is Not Caused by the Heart (DC) Add. Discharge Instructions: Please take your pantoprazole (Protonix) consistently twice daily until otherwise instructed by your doctor. Please schedule follow-up appointment with your doctor to discuss your episode of hypertension and accelerated heart rate as well as your chest pain. Consider seeking referral for endoscopy of your esophagus and stomach for further evaluation of chest pain and acid reflux. Avoid the following: Eating large meals, eating close to bedtime, caffeine, carbonation, chocolate, citrus fruits and juices, tomato products, mints, alcohol, tobacco, spicy foods, NSAID medications such as ibuprofen or naproxen, and anything else you know irritate your stomach. Continue to work toward weight loss which should help your blood pressure, heart rate, and acid reflux. Seek assistance from your doctor if necessary. For acute treatment of similar chest pain, try taking Tums and Tylenol (acetaminophen). You may use Zofran as prescribed for nausea or vomiting. Return to care if you have unrelenting symptoms or worsening symptoms. All discharge instructions reviewed with patient and/or family. Voiced understanding. Scripts Ondansetron (Ondansetron Odt) 4 Mg Tab.rapdis 4 MG SL Q4H PRN for NAUSEA/VOMITING, #10 TAB Prov: MARY ANN BELTRAN MD 11/11/22 MARY ANN BELTRAN MD Nov 11, 2022 19:02
[2022-11-11 19:08] LABS: PROTHROMBIN TIME PATIENT 13.2 SEC (12.2-14.7)
--- NOTE | 2022-11-11 19:09 | Diagnostic Imaging Report ---
INDICATION: Chest pain and tightness for approximately 3-4 days. Ear infection. TECHNIQUE: Single view chest 6:52 PM. CORRELATION STUDY: 12/06/2019 FINDINGS: The heart size, mediastinal configuration and pulmonary vascularity are within normal limits. The lungs are clear with no consolidating infiltrate. There is no significant effusion or pneumothorax. IMPRESSION: 1. Stable, negative appearing portable chest. Dictated by: Dictated on workstation # [id number]
[2022-11-11 19:12] LABS: ALANINE AMINOTRANSFERASE 16 U/L (0-55); ALBUMIN 4.1 GM/DL (3.2-4.5); ALKALINE PHOSPHATASE 92 U/L (40-136); BUN/CREATININE RATIO 13; CALCIUM 9.3 MG/DL (8.5-10.1); CARBON DIOXIDE 24 MMOL/L (21-32); CREATININE SERUM 0.85 MG/DL (0.60-1.30); GFR ESTIMATED 81; GLUCOSE 160 MG/DL (70-105); MAGNESIUM 1.9 MG/DL (1.6-2.4); TOTAL PROTEIN 6.9 GM/DL (6.4-8.2)
[2022-11-11 19:26] LABS: CHLORIDE 106 MMOL/L (98-107); POTASSIUM 3.6 MMOL/L (3.6-5.0); SODIUM 139 MMOL/L (135-145)
[2022-11-11] MEDS ORDERED: ANTACID SUSP 30 ML UDC (MYLANTA) PO ONE (19:30)
[2022-11-11] MEDS ORDERED: ONDANSETRON 4 MG/2 ML (SDV) Z0FRAN IVP ONE (19:30)
[2022-11-11] MEDS ORDERED: LIDOCAINE 2% VISCOUS 15 ML UDC PO ONE (19:30)
[2022-11-11] MEDS ORDERED: LACTATED RINGERS 1,000 ML IV ONE (20:30)
[2022-11-11] MEDS ORDERED: ONDA4TAB11 SL (21:36)
[2022-11-11 21:55] VITALS: BP 145/97
== END 2022-11-11 21:55 | disposition home or self-care (01) ==
LOC: EDUNIT# 18:35 → ER 18:38
DX: R07.89 Other chest pain (principal); R00.0 Tachycardia, unspecified; K21.9 Gastro-esophageal reflux disease without esophagitis; R03.0 Elevated blood-pressure reading, without diagnosis of hypertension; E66.01 Morbid (severe) obesity due to excess calories; Z68.43 Body mass index [BMI] 50.0-59.9, adult
CPT/HCPCS: 36415; 71045; 80053; 83735; 83874; 83880; 84484; 85025; 85379; 85610; 85730; 86141; 93005; 93041